=== PATIENT | male | born 1945 | race Caucasian/White ===

== ENCOUNTER → 2018-06-24 09:54 | Outpatient (CLI) | payer MEDICARE, OTHER, SELFPAY ==
--- NOTE | 2018-06-24 10:04 | RAD_ITS ---
STUDY: X-RAY - PELVIS REASON FOR EXAM: Male, 73 years old. Inflammatory polyarthropathy TECHNIQUE: One view of the pelvis was obtained. COMPARISON: None. FINDINGS: There is a non-specific bowel gas pattern. Prostate brachytherapy seeds. Left groin clips. Normal bilateral iliac wings, sacroiliac joints and visualized sacrum. Normal visualized bilateral superior and inferior pubic rami. Normal pubic symphysis. Normal ischial tuberosities. Normal visualized right femoral head. Normal right acetabulum. Normal right hip joint. Normal visualized left femoral head. Normal left acetabulum. Normal left hip joint. RAD/Pelvis 1 or 2 Views IMPRESSION: No osseous abnormality is evident. Electronically Signed: Elvis Rodriguez MD at 17:41 EDT Tel , Service support ,
[2018-06-24 12:30] LABS: Absolute Lymphocyte Count 0.74 X10^3/ul (0.83-4.51); Absolute Neutrophil Count 5.7 X10^3/uL (2.0-7.7); Hematocrit 39.4 % (40-54); Lymphocyte # 0.74 X10^3/ul (4.0); Lymphocyte % 10.4 % (19-41); Mean Corp Hgb Conc 30.5 g/gl (32-36); Mean Corpuscular Hgb 22.7 pg (27.0-32.0); Mean Corpuscular Volume 74.6 fL (80-94); Mean Platelet Vol. 9.8 fl (6.2-12.0); Monocyte# 0.68 X10^3/uL; Monocyte% 9.5 % (0-10); Platelet Count 271 K/mm3 (150-450); RBC Distribution Width CV 17.8 % (11.6-14.6); RBC Distribution Width SD 47.4 fl (35.1-43.9); Red Blood Count 5.28 M/mm3 (4.6-6.2); White Blood Count 7.1 K/mm3 (4.4-11.0)
[2018-06-24 12:32] LABS: Differential Indicated SCAN CRITERIA MET; POSITIVE COUNT NO; POSITIVE DIFFERENTIAL NO; POSITIVE MORPHOLOGY YES
[2018-06-24 12:48] LABS: ALB/GLOB Ratio 0.9 RATIO (0.9-2.4); AST(SGOT) 17 U/L (15-37); Alanine Aminotransfer ALT/SGPT 25 U/L (16-61); Albumin, Serum 3.6 g/dL (3.2-5.0); Alkaline Phosphatase 94 U/L (45-117); Anion Gap 8 (5-15); BUN 18 mg/dL (7-18); BUN/Creat Ratio 14.1 RATIO (10-20); Calcium,Total 8.9 mg/dL (8.5-10.1); Chloride 104 mmol/L (98-107); Creatinine, Serum 1.28 mg/dL (0.70-1.30); EST Glomerular Filtration Rate 59 mL/min (>60); Est Glom Filt Rate - Afr Amer 71 mL/min (>60); Globulin 4.2 g/dL (2.2-4.2); Glucose 94 mg/dL (74-106); Potassium 3.7 mmol/L (3.5-5.1); Protein, Total 7.8 g/dL (6.4-8.2); Rheumatoid Factor < 10.0 IU/mL (<15); Sodium Level 139 mmol/L (136-145)
[2018-06-25 17:37] LABS: ANTINUCLEAR ANTIBODIES DIRECT Negative (Negative)
[2018-06-28 12:51] LABS: CCP IgG Antibodies 56 units (0-19); HEPATITIS B SURFACE AG Negative (Negative); HLA B27 Positive (.); Hep B Surface Antibodies Reactive (.); Hep C Antibodies <0.1 s/co ratio (0.0-0.9)
== END ==
PROVIDERS: Family Provider Family Medicine; PCP Family Medicine; Referring Provider Internal Medicine Rheumatology; Visit Provider Internal Medicine Rheumatology
DX: M06.4 Inflammatory polyarthropathy (principal); K21.9 Gastro-esophageal reflux disease without esophagitis; I10 Essential (primary) hypertension; J45.909 Unspecified asthma, uncomplicated; Z85.46 Personal history of malignant neoplasm of prostate; Z93.6 Other artificial openings of urinary tract status
CPT/HCPCS: 36415; 72170; 80053; 81374; 85025; 86038; 86200; 86431; 86706; 86803; 87340

== ENCOUNTER → 2018-08-16 13:31 | Outpatient (CLI) | payer MEDICARE, OTHER, SELFPAY ==
[2018-08-16 15:40] LABS: AST(SGOT) 9 U/L (15-37); Alanine Aminotransfer ALT/SGPT 19 U/L (16-61); Albumin, Serum 3.7 g/dL (3.2-5.0); Alkaline Phosphatase 80 U/L (45-117); Anion Gap 8 (5-15); BUN 21 mg/dL (7-18); BUN/Creat Ratio 17.1 RATIO (10-20); Calcium,Total 8.9 mg/dL (8.5-10.1); Chloride 107 mmol/L (98-107); Creatinine, Serum 1.23 mg/dL (0.70-1.30); EST Glomerular Filtration Rate 61 mL/min (>60); Est Glom Filt Rate - Afr Amer 74 mL/min (>60); Globulin 3.6 g/dL (2.2-4.2); Glucose 155 mg/dL (74-106); Potassium 4.4 mmol/L (3.5-5.1); Protein, Total 7.3 g/dL (6.4-8.2); Sodium Level 142 mmol/L (136-145)
[2018-08-16 16:35] LABS: Absolute Lymphocyte Count 0.57 X10^3/ul (0.83-4.51); Absolute Neutrophil Count 7.3 X10^3/uL (2.0-7.7); Differential Comment SCANNED; Differential Indicated SCAN CRITERIA MET; Hematocrit 39.8 % (40-54); Hemoglobin 12.5 g/dl (13.0-16.5); Lymphocyte # 0.57 X10^3/ul (4.0); Mean Corp Hgb Conc 31.4 g/gl (32-36); Mean Corpuscular Hgb 24.6 pg (27.0-32.0); Mean Corpuscular Volume 78.2 fL (80-94); Mean Platelet Vol. 10.2 fl (6.2-12.0); Monocyte# 0.29 X10^3/uL; Monocyte% 3.6 % (0-10); Neutrophil # 7.28 X10^3/uL (2.7-7.7); Neutrophil % 89.3 % (47-70); POSITIVE COUNT NO; POSITIVE DIFFERENTIAL YES; POSITIVE MORPHOLOGY NO; Platelet Count 256 K/mm3 (150-450); RBC Distribution Width CV 17.5 % (11.6-14.6); Red Blood Count 5.09 M/mm3 (4.6-6.2); White Blood Count 8.2 K/mm3 (4.4-11.0)
== END ==
PROVIDERS: Family Provider Family Medicine; PCP Family Medicine; Referring Provider Internal Medicine Rheumatology; Visit Provider Internal Medicine Rheumatology
DX: M06.4 Inflammatory polyarthropathy (principal); K21.9 Gastro-esophageal reflux disease without esophagitis; I10 Essential (primary) hypertension; J45.909 Unspecified asthma, uncomplicated; Z85.46 Personal history of malignant neoplasm of prostate; Z93.6 Other artificial openings of urinary tract status
CPT/HCPCS: 36415; 80053; 85025